=== PATIENT | female | born 1985 | race Caucasian/White ===

== ENCOUNTER 2017-03-09 19:54 | Emergency (ER) | payer MEDICAID ==
[2017-03-09 19:54] VITALS: BMI 31.3
[2017-03-09 20:09] VITALS: BP 141/70; PULSE 90; RESP 18; TEMP 98.1; O2SAT 99
[2017-03-09 21:17] LABS: URINE BILIRUBIN NEGATIVE (NEGATIVE); URINE BLOOD NEGATIVE (NEGATIVE); URINE COLOR STRAW (YELLOW); URINE GLUCOSE (UA) NEG (Normal); URINE KETONE NEGATIVE (NEGATIVE); URINE LEUKOCYTE ESTERASE NEG Leu/uL (Negative); URINE PROTEIN NEGATIVE (NEGATIVE); URINE UROBILINOGEN 0.2-1.0 mg/dL (0.2-1.0)
[2017-03-09 21:22] LABS: RBC URINE 1 /hpf (0-3); WBC URINE 1 /hpf (0-5)
--- NOTE | 2017-03-09 21:31 | ED PDOC ---
Syncope/Near Syncope/Dizziness Time Seen by Provider: 03/09/17 20:44 Chief Complaint (Nursing): Dizziness/Lightheaded Chief Complaint (Provider): Weakness/Dizziness History Per: Patient History/Exam Limitations: no limitations Onset/Duration Of Symptoms: Hrs (x2) Current Symptoms Are (Timing): Still Present Additional Complaint(s): Jane Goodman is a 31 year old female with no past medical history that presents to the ED with a chief complaint of generalized weakness and dizziness that she has been experiencing for the past two hours. Patient states that she was smoking tobacco from a hookah in an acquaintance's home, shortly after which she developed weakness, dizziness, and palpitations. Patient suspects that she may have been smoking something laced with an illicit substance. She states that her symptoms have somewhat improved, however, she became concerned, prompting her ED visit. She denies any nausea, vomiting, fever , cough, or shortness of breath. Past Medical History Reviewed: Historical Data, Nursing Documentation, Vital Signs Vital Signs: Last Vital Signs Temp 98.1 F 03/09/17 20:06 Pulse 90 03/09/17 20:06 Resp 18 03/09/17 20:06 BP 141/70 03/09/17 20:06 Pulse Ox 99 03/09/17 20:06 - Medical History PMH: No Chronic Diseases - Family History Family History: States: Unknown Family Hx - Social History Current smoker - smoking cessation education provided: Yes SMOKER/PACKS PER DAY:: 1 (Patient smokes 1.5 packs per day.) Alcohol: None Drugs: Denies - Allergies Allergies/Adverse Reactions: Allergies Allergy/AdvReac Type Severity Reaction Status Date / Time No Known Allergies Allergy Unverified 09/02/16 19:07 Review of Systems Constitutional: Positive for: Weakness. Negative for: Fever Cardiovascular: Positive for: Palpitations Respiratory: Negative for: Cough Gastrointestinal: Negative for: Nausea, Vomiting, Diarrhea Neurological: Positive for: Dizziness Physical Exam - Reviewed Nursing Documentation Reviewed: Yes Vital Signs Reviewed: Yes - Physical Exam Appears: Positive for: Non-toxic, No Acute Distress Head Exam: Positive for: ATRAUMATIC, NORMOCEPHALIC Skin: Positive for: Normal Color, Warm Eye Exam: Positive for: Normal appearance, EOMI, PERRL Cardiovascular/Chest: Positive for: Regular Rate, Rhythm. Negative for: Murmur Respiratory: Positive for: Normal Breath Sounds. Negative for: Wheezing Neurologic/Psych: Positive for: Alert, production welding supervisor II-XII, Oriented. Negative for: Motor/Sensory Deficits - Laboratory Results Result Diagrams: 03/09/17 21:05 03/09/17 21:23 - ECG O2 Sat by Pulse Oximetry: 99 (RA) Pulse Ox Interpretation: Normal Medical Decision Making Medical Decision Making: Impression: 31 year old female with acute dizziness and weakness in setting of tobacco use Plan: * EKG * CMP * CBC * Urine Drug Screen * Urine dip * Urine * Accucheck * Reevaluation -Labs show no significant abnormalities. Patient reports symptoms are better and condition improved. Diagnosis is dizziness. Scribe Attestation: Documented by Sara Treviño, acting as a scribe for Macario Cuadra MD. Provider Scribe Attestation: All medical record entries made by the Scribe were at my direction and personally dictated by me. I have reviewed the chart and agree that the record accurately reflects my personal performance of the history, physical exam, medical decision making, and the department course for this patient. I have also personally directed, reviewed, and agree with the discharge instructions and disposition. Disposition - Clinical Impression Clinical Impression: Dizziness - Disposition Disposition Time: 21:45 Condition: STABLE Instructions: Dizziness (ED) Forms: A & A [employer] (Bhutanese)
[2017-03-09 21:36] LABS: ALB/GLOB RATIO 1.4 (1.0-2.1); ALKALINE PHOSPHATASE 66 U/L (38-126); ALT/SGPT 26 U/L (9-52); AST/SGOT 21 U/L (14-36); BILIRUBIN,TOTAL 0.3 mg/dl (0.2-1.3); BLOOD UREA NITROGEN 10 mg/dl (7-17); CALCIUM 9.4 mg/dL (8.4-10.2); CARBON DIOXIDE 25 mmol/L (22-30); CHLORIDE 106 mmol/L (98-107); GFR AFRICAN-AMERICAN > 60; GLUCOSE,RANDOM 93 mg/dL (65-105); POTASSIUM 4.6 MMOL/L (3.6-5.0); SODIUM 138 mmol/l (132-148); TOTAL PROTEIN 6.8 G/DL (6.3-8.2)
[2017-03-09 21:42] LABS: BASO # 0.1 K/uL (0.0-0.2); BASO % 0.6 % (0.0-2.0); EOS # 0.2 K/uL (0.0-0.7); EOS % 1.9 % (0.0-4.0); HEMATOCRIT 41.1 % (34.0-47.0); LYMPH # 3.8 K/uL (1.0-4.3); MEAN CELL VOLUME 86.8 fl (81.0-99.0); MEAN CORPUSCULAR HEMOGLOBIN 28.6 pg (27.0-31.0); MEAN CORPUSCULAR HGB CONC 32.9 g/dL (33.0-37.0); MEAN PLATELET VOLUME 7.4 fl (7.2-11.7); MONO # 0.7 K/uL (0.0-0.8); MONO % 6.8 % (0.0-10.0); NEUT # 5.5 K/uL (1.8-7.0); NEUT % 53.7 % (50.0-75.0); NRBC % 0.1 % (0.0-0.0); RED CELL DISTRIBUTION WIDTH 14.6 % (11.5-14.5); WHITE BLOOD COUNT 10.3 K/uL (4.8-10.8)
== END 2017-03-09 21:58 | disposition home or self-care (01) ==
LOC: H.ER 19:54
DX: R42 Dizziness and giddiness (principal); R53.1 Weakness